=== PATIENT | female | born 1985 | race Two or more races ===

== ENCOUNTER 2018-02-28 22:02 | Emergency (ER) | payer BC, OTHER ==
[~2018-02-28] VITALS: Ht 167.6 cm; Wt 52.2 kg
[~2018-02-28 22:02] MED LIST: IBUPROFEN600 MG PO; NORCO 5-325 TA1 EACH PO; ONDANSETRON ODT8 MG PO; PERCOCET 5-3251 EACH PO
[2018-02-28] MEDS ORDERED: ZYRTEC10 MG ORAL (22:09)
[2018-02-28] MEDS ORDERED: DiphenhydrAMINE 50mg/ml Inj IVP ONE (22:15)
[2018-02-28] MEDS ORDERED: Solu-MEDROL 125mg Inj IVP ONE (22:15)
[2018-02-28] MEDS ORDERED: Azithromycin 500 MG in NS 275 ML IV SCH (22:15)
[2018-02-28] MEDS ORDERED: Solu-MEDROL 125mg Inj ONE (22:30)
[2018-02-28] MEDS ORDERED: DiphenhydrAMINE 50mg/ml Inj ONE (22:32)
[2018-02-28 23:20] LABS: BILIRUBIN, URINE NEGATIVE (NEGATIVE); GLUCOSE, URINE (UA) NEGATIVE (NEGATIVE); KETONES,URINE NEGATIVE (NEGATIVE); LEUKOCYTE ESTERASE ,URINE 2+ (NEGATIVE); NITRITE,URINE NEGATIVE (NEGATIVE); PH,URINE 6 (4.5-8.0); PROTEIN,URINE 1+ (NEGATIVE); UROBILINOGEN,URINE 1 MG/DL (0.0-1.0)
[2018-02-28 23:40] LABS: APPEARANCE,URINE SLIGHTLY CLOUDY; COLOR,URINE YELLOW
[2018-02-28 23:45] VITALS: BP 107/66
--- NOTE | 2018-02-28 23:59 | Emergency Room Report ---
History of Present Illness General Chief Complaint: Allergic Reaction Source: Patient Present Illness HPI Patient presents with allergic reaction. She ate a macaroon and then noted there were almonds in it. She has epi pen, but did not use it. She took benadryl and also a xanax. The feeling her throat was closing has resolved. She still feels itching in her face and other areas. This is not her worst attack. It started 2 hours ago and the throat is better. No NVD. She doesn't believe she is . No joint pain, dizziness, dysuria, fevers. H/O migraines Allergies: Coded Allergies: [employer] Nut (Verified Allergy, Severe, Anaphylaxis, 07/07/12) SUMATRIPTAN (Verified Allergy, Severe, Anaphylaxis, 07/07/12) SUMATRIPTAN SUCCINATE (Verified Allergy, Severe, Anaphylaxis, 07/07/12) [place] (Verified Allergy, Unknown, 02/28/18) PEANUT (Verified Adverse Reaction, Intermediate, MIGRAINES, 07/07/12) Patient History Past Medical History: see triage record Social History: Denies: smoking Social History Narrative sales Last Menstrual Period: Pt does not get them anymroe Now: No Reviewed Nursing Documentation: PMH: Agreed; PSxH: Agreed Nursing Documentation-PMH Hx Neurological Problems: Yes - Migraine headaches Review of Systems All Other Systems: negative except mentioned in HPI Physical Exam Vital Signs Date Time Temp Pulse Resp B/P (MAP) Pulse Ox O2 Delivery O2 Flow Rate FiO2 02/28/18 22:04 97.9 81 16 106/69 98 Room Air 97.9 Sp02 EP Interpretation: reviewed, normal General Appearance: well appearing, no apparent distress, GCS 15 Head: normocephalic Eyes: bilateral eye normal inspection, bilateral eye PERRL ENT: normal pharynx, no angioedema, moist mucus membranes Neck: supple Respiratory: lungs clear, normal breath sounds Cardiovascular #1: regular rate, rhythm Cardiovascular #2: 2+ radial (R) Gastrointestinal: normal inspection, normal bowel sounds, non tender, no mass, non-distended Musculoskeletal: back normal, gait/station normal, normal range of motion Neurologic: alert, oriented x3, grossly normal Psychiatric: anxious Skin: warm/dry, other - erythroderma, face and upper extrem Medical Decision Making Diagnostic Impression: Primary Impression: Allergic reaction Qualified Codes: T78.40XA - Allergy, unspecified, initial encounter ER Course Patient with allergic reaction. DDX: anaphylaxis, localized reaction, anxiety amongst others. She reports major symptoms are improving. Initial consideration for epi. Holding this as reported improvement. Will treat with Solumedrol, benadryl and pepcid. Patient with some disorientation with benadryl and xanax. Mentation improved. Erythroderma resolved and no more swelling in throat. She has benadryl at home. Patient stable for outpatient observation and treatment. (NB - azithro not ordered by me and not given.) Rhythm Strip Diag. Results EP Interpretation: yes Rhythm: NSR, no PVC's, no ectopy Last Vital Signs Date Time Temp Pulse Resp B/P (MAP) Pulse Ox O2 Delivery O2 Flow Rate FiO2 03/01/18 00:08 77 16 102/66 99 Room Air 02/28/18 22:04 97.9 97.9 Status: improved Disposition: HOME, SELF-CARE Condition: Improved Scripts Prednisone* (PREDNISONE*) 20 Mg Tablet 40 MG ORAL DAILY, #10 TAB Prov: Yannick Eason M.D. 03/01/18 Epinephrine (Epipen 2-[place]) 0.3 Mg/0.3 Ml Auto.injct 0.3 MG IM NEEDED, #1 EA 2 Refills Prov: Yannick Eason M.D. 03/01/18 Yannick Eason M.D. Feb 28, 2018 23:59
[2018-03-01] MEDS ORDERED: PREDNISONE20 MG ORAL
[2018-03-01] MEDS ORDERED: EPIPEN 2-P0.3 MG/0.3 IM
[2018-03-01 00:08] VITALS: BP 102/66
== END 2018-03-01 00:06 | disposition home or self-care (01) ==
LOC: EMR 22:40
DX: Z91.018 Allergy to other foods (principal); Z88.8 Allergy status to other drugs, medicaments and biological substances; Z91.010 Allergy to peanuts; G43.909 Migraine, unspecified, not intractable, without status migrainosus
CPT/HCPCS: 81003; 81025; 87086; 99283; J1200; J2930